=== PATIENT | male | born 1995 | race Caucasian/White ===

== ENCOUNTER 2021-03-01 07:28 | Inpatient (IN) | payer OTHER ==
[~2021-03-01] VITALS: Ht 167.6 cm; Wt 84.0 kg
[2021-03-01] MEDS ORDERED: BEVESPI AEROS10.7 GM IH (07:47)
--- NOTE | 2021-03-01 12:00 | NUR ---
Patient arrived to unit from ED, a&ox4. Vital signs are stable. Oriented patient to room and call light. Correctional wrist/ankle cuffs in place. Two correctional officers at bedside. No needs.
--- NOTE | 2021-03-01 14:10 | NUR ---
Patient sitting up in bed, a&ox4. Patient denies pain at this time. Respirations even and non labored. Patient tolerated lunch well. Two correctional officers at bedside. Correctional ankle/wrist cuffs remain in place. No needs at this time.
--- NOTE | 2021-03-01 14:23 | NUR ---
PATIENT IN BED WATCHING TV. 2 GUARDS IN ROOM. FRESH WATER GIVEN. VITALS AND I&O'S CHARTED. CALL LIGHT IN REACH. NO FURTHER NEEDS AT THIS TIME.
--- NOTE | 2021-03-01 16:43 | NUR ---
MED REC COMPLETE
--- NOTE | 2021-03-01 18:56 | NUR ---
Patient resting in bed, eyes closed, respirations even and non labored. Patient has no notable distress. Iv fluids infusing per provider order. Two correctional officers at bedside.
--- NOTE | 2021-03-01 19:30 | NUR ---
REPORT RECEIVED FROM STEPHANIE ELLSWORTH. pt RESTING IN BED ON SIDE, BREATHING UNLABORED. LIGHTS OFF IN ROOM. GUARDS IN ROOM.
--- NOTE | 2021-03-01 20:12 | EKG ---
[facility] [address] [place], [place] [address] Signed Sinus tachycardia Otherwise normal ECG No previous ECGs available Confirmed by SUHAIL AUSTIN DO ([id number]) on 03/01/2021 8:12:10 PM Electronically Signed By: SUHAIL AUSTIN DO 03/01/212011 PATIENT NAME: STEPHANIE MONZON Electrocardiogram DATE OF : [birth year] PHYSICIAN: SUHAIL AUSTIN DO REPORT #: [id number] REPORT IS CONFIDENTIAL AND NOT TO BE RELEASED WITHOUT AUTHORIZATION
--- NOTE | 2021-03-01 20:15 | NUR ---
pt ASSESSMENT COMPLETE. pt DENIES PAIN, DENIES PAIN WITH URINATION. IV FLUSHED WNL, GOOD BLOOD RETURN. IVF INFUSING WNL ORDERED. LABS DRAWN AND SENT TO LAB. ICE WATER IN REACH. pt DENIES ANY NEEDS AT THIS TIME.
--- NOTE | 2021-03-01 22:18 | NUR ---
pt AWAKE IN ROOM WATCHING TV. IVF INFUSING WNL. GUARDS IN ROOM. URINAL EMPTIED. ICE WATER PROVIDED REQUESTED. NO ADDITIONAL NEEDS.
--- NOTE | 2021-03-02 00:09 | NUR ---
pt LYING ON RIGHT SIDE WITH EYES CLOSED, BREATHING UNLABORED. IVF INFUSING ORDERED. GUARDS IN ROOM, CHANGING OF GUARDS AT THIS TIME.
--- NOTE | 2021-03-02 00:59 | NUR ---
V/S AND I&O'S DONE. EMPTIED URINAL. 2 GUARDS IN THE ROOM. ICE WATER REFILLED.
--- NOTE | 2021-03-02 00:59 | NUR ---
IV PUMP ALARMING, pt SLEEPING, AWAKENS TO VOICE. NEW BAG IVF INFUSING WNL ORDERED. VSS. URINE EMPTIED FROM URINAL, DILUTE, YELLOW URINE. ICE WATER REFILLED. CALL LIGHT IN REACH.
--- NOTE | 2021-03-02 03:19 | NUR ---
pt RESTING ON LEFT SIDE, BREATHING EQUAL AND UNLABORED. GUARDS PRESENT IN ROOM.
--- NOTE | 2021-03-02 06:32 | NUR ---
pt SLEEPING, AWAKENS TO VOICE. VSS. pt DENIES ANY PAIN, REQUESTING TO SLEEP. COOPERATIVE WITH CARES. ASSESSMENT COMPLETE. ICE WATER REFRESHED. NEW BAG IVF INFUSING WNL ORDERED. GUARDS PRESENT IN ROOM.
--- NOTE | 2021-03-02 07:46 | NUR ---
this rn received report from winter. pt appears to be resting with respirtaions noted. pt prisoner from [facility] in [facility]
--- NOTE | 2021-03-02 08:25 | NUR ---
THIS RN IN PTS ROOM TO CHECK ON PT. PT APPEARS TO BE RESTING COMFORTABLY WITH RESPIRATIONS NOTED. GUARDS AT BEDSIDE AT THIS TIME.
--- NOTE | 2021-03-02 09:25 | NUR ---
PATIENT UP TO USE BR, 2 GUARDS AT BEDSIDE. VITALS AND I&OS CHARTED. CALL LIGHT IN REACH
--- NOTE | 2021-03-02 10:20 | NUR ---
CM assessment completed. No needs. Will return to [facility] when discharged. Per [address] Rodriguez feels pt could return to [facility] in next 1-2 days if they are able to give IV fluids and monitor labs. Called and spoke with Nurse Oliva. She [facility] per week. Informed I will notify Dr. Rodriguez and call her back.
--- NOTE | 2021-03-02 11:15 | NUR ---
Spoke with Dr. Rodriguez and he feels pt can return in 1-2 days as long as Lab cont. to trend down. Pt will not need labs 6 days per week. [facility] medical updated as well as Jaye at [facility].
--- NOTE | 2021-03-02 11:51 | NUR ---
BROUGHT PT HIS FOOD, THREW AWAY HIS BREAKFAST. HAD NO OTHER NEEDS, REFILLED HIS WATER.
--- NOTE | 2021-03-02 13:15 | NUR ---
THIS RN IN PTS ROOM TO COSTUMED CHARACTER ENTERTAINER FLUIDS. PT STATES THAT HE IS FEELING BETTER SINCE BEING ADMITTED. PT REPORTS NO PAIN AND HAS NO CONCERNS AT THIS TIME. PT IN 4 POINT RESTRAINTS DUE TO PRISONER AT [facility] AT BEDSIDE
--- NOTE | 2021-03-02 16:31 | NUR ---
THIS RN IN PTS ROOM DUE TO PTS IV PUMP GOING OFF. PT STATES THAT HE IS DOING WELL AND NEEDS NOTHING FURTHER AT THIS TIME.
--- NOTE | 2021-03-02 17:42 | NUR ---
PATIENT AWAKE IN BED, 1 GUARD IN ROOM. VITALS AND I&OS CHARTED. CALL LIGHT IN REACH
--- NOTE | 2021-03-02 20:00 | NUR ---
ASSISTING RN WITH PT TRANSFER TO M/S RM 107, ICE WATER PROVIDED, NO FURTHER NEEDS AT THIS TIME
--- NOTE | 2021-03-02 20:35 | NUR ---
IN TO GET VITALS, NO FURTHER NEEDS AT THIS TIME, CLAUDIO CERVANTES
--- NOTE | 2021-03-02 21:16 | NUR ---
Patient laying in bed watching tv, a&ox4. Patient denies pain at this time. Fresh water at bedside. Correctional wrist/ankle restraints in place. Two correctional officers at bedside. CMS intact. Patient denies needs at this time. No notable distress. Personal supplies and call light within reach.
--- NOTE | 2021-03-02 23:28 | NUR ---
Patient resting on side, eyes closed, respirations non labored. Patient has no distress. Two correctional officers at bedside.
--- NOTE | 2021-03-03 00:24 | NUR ---
weapons electrical engineering officer shift change noted. Two new correctional officers at bedside. Patient sleeping, respirations non labored. No notable distress.
--- NOTE | 2021-03-03 04:04 | NUR ---
Patient sleeping, eyes closed respirations even and non labored. No notable distress. Personal supplies and call light within reach.
--- NOTE | 2021-03-03 07:30 | NUR ---
RECEIVED REPORT AROUND 0700, PT AT THAT TIME WAS SLEEPING. NO NEW CONCERNS WERE NOTED AT THAT TIME.
--- NOTE | 2021-03-03 08:30 | NUR ---
Notified by Dr. Rodriguez, pt will dc today to [facility] if lab cont. to trend down.
--- NOTE | 2021-03-03 09:00 | NUR ---
V/S WDL, URINE OUTPUT AND COLOR IS GOOD, LOBES CLEAR, ABD SOUNDS PRESENT, PT DENIES ANY PAIN, NO EDEMA NOTED. PT AAOX4. PT IS HOWEVER STILL VERY MUCH WITHDRAWN AND JUST WISHES TO SLEEP.
--- NOTE | 2021-03-03 10:45 | NUR ---
Orders completed for dc by Dr. Rodriguez. Called and updated Nurse from [facility] and orders, H&P, DC summary, and labs for today faxed. She requests date of last change for IV and IV tubing. Spoke with newspaper copy editor and this was completed 03/02 and [facility] notified. Fax placed in envelope and given to newspaper copy editor and notified pt may return to [facility] at any time. [id number] [facility] and updated as well. Above faxed for her AM update.
--- NOTE | 2021-03-03 11:06 | NUR ---
PT D/C AT THIS TIME. IV IN PLACE FOR INFIRMBANNER.
== END 2021-03-03 11:05 | disposition home or self-care (01) | DRG 558 ==
LOC: ED 07:28 → MS 07:32 → ED 07:32 → MS 11:08
PROVIDERS: ADMIT Student in an Organized Health Care Education/Training Program; ATTEND Student in an Organized Health Care Education/Training Program
DX: M62.82 Rhabdomyolysis (principal); Z20.822 Contact with and (suspected) exposure to COVID-19; Z88.0 Allergy status to penicillin; Z79.899 Other long term (current) drug therapy
CPT/HCPCS: 80053; 81001; 82553; 82565; 82803; 83735; 84100; 84520; 84550; 85025; 93005; 93010; 99284-25; G0378; J1650; J7030; J7121; U0003